=== PATIENT | male | born 1950 | race Caucasian/White ===

== ENCOUNTER 2016-09-14 23:39 | Emergency (ER) | payer MEDICARE, OTHER ==
[~2016-09-14 23:39] MED LIST: APRES25 PO; ASAB PO; AURYXIA PO; AURYXIA210 MG PO; CARDURA8 MG PO; CAT3 PO; CORDARONE PO; COREG25 PO; D.O.S.100 MG PO; DIALYVITE PO; DIALYVITE800 MG PO; DIOVAN320 MG PO; FISH OIL300 MG PO; HUMALOG SC; HUMALOGPEN SC; IMDUR60 PO; INSNOVR SC; L80 PO; LEVEMFLXPN SC; LEVEMIR SC; LIPITOR20 PO; LIPITOR40; LIPITOR80 MG PO; LOP100 PO; LOP50 PO; LYRICA75 PO; MIRALAX POWDER1 PKT PO; NEPRO CARB STEADY PO; NORCO1 TA1 PO; NORV10 PO; OXYGEN; PLAVIX PO; PRIN20 PO; REG5 PO; RENA-VITE PO; SEVE800T PO; SPIRO25 PO; TEKTUR150 PO; TEKTURNA300 MG PO; TRAN200 PO; TUMSROLL PO; VITAMIN D1000 UNI1 PO; XALAT OPH; Z100 PO; ZANAFLEX2 MG PO; ZOFRAN4 PO; ZOLOFT25 MG PO; [UNRECOGNIZED DRUG - OTHER]
[2016-09-15 00:38] LABS: BASOPHILS 0.3 %; BASOPHILS ABSOLUTE 0.04 10/3/uL (0.0-0.16); EOSINOPHILS 3.4 %; EOSINOPHILS ABSOLUTE 0.45 10/3/uL (0.0-0.53); IMMATURE GRANULOCYTES 0.3 %; IMMATURE GRANULOCYTES ABSOLUTE 0.04 10/3/uL (0.0-0.11); LYMPHOCYTES 4.3 %; LYMPHOCYTES ABSOLUTE 0.56 10/3/uL (0.67-4.30); MEAN CORPUS HGB CONC 33.2 g/dL (32.0-36.0); MEAN PLATELET VOLUME 11.1 fL (9.2-13.0); MONOCYTES 4.8 %; MONOCYTES ABSOLUTE 0.63 10/3/uL (0.21-1.20); NEUTROPHILS 86.9 %; NEUTROPHILS ABSOLUTE 11.35 10/3/uL (2.02-8.40); RBC DISTRIBUTION WIDTH 15.3 % (12.0-16.0); WHITE BLOOD CELLS 13.1 10/3/uL (4.5-10.5)
[2016-09-15 00:41] LABS: ER CBC TAT 0 Hrs 07 MinsN; HEMATOCRIT 37.7 % (40.0-51.0); HEMOGLOBIN 12.5 g/dL (13.6-17.8); MANUAL DIFF NO %; MEAN CORPUSCULAR VOLUME 90.6 fL (80-100); PLATELET COUNT 162 10/3/uL (150-400); RED CELL COUNT 4.16 10/6/uL (4.7-6.1)
[2016-09-15 00:48] LABS: PROTIME (NOT ORD) 13.3 SEC (12.0-14.5)
[2016-09-15 00:55] LABS: CALCIUM, SERUM 9.3 MG/DL (8.5-10.4); CHLORIDE, SERUM 100 MMOL/L (96-112); CO2 (CARBON DIOXIDE) 29 MMOL/L (24-34); POTASSIUM, SERUM 4.4 MMOL/L (3.5-5.3); SODIUM, SERUM 138 MMOL/L (135-148)
[2016-09-15 00:57] LABS: BUN (BLOOD UREA NITROGEN) 59 MG/DL (6-23); CREATININE 7.48 MG/DL (0.70-1.30); GFR AFRICAN AMERICAN 8 ML/MIN (>=60); GFR NON AFRICAN AMERICAN 7 ML/MIN (>=60); GLUCOSE, SERUM 181 MG/DL (60-99)
[2016-09-15 00:58] LABS: CHEST PAIN PROFILE TAT 0 Hrs 27 Mins; TROPONIN I 0.06 NG/ML (<0.05)
[2017-02-09] MEDS ORDERED: SPIRO25 PO (13:11)
[2017-02-09] MEDS ORDERED: CLARIT10 PO (13:12)
[2017-02-09] MEDS ORDERED: ASAB PO (13:12)
[2017-02-09] MEDS ORDERED: AURYXIA210 MG PO (13:12)
[2017-02-09] MEDS ORDERED: DIALYVITE PO (13:13)
[2017-02-09] MEDS ORDERED: DSS PO (13:13)
[2017-02-09] MEDS ORDERED: IMDUR60 PO (13:14)
[2017-02-09] MEDS ORDERED: LEVEMIR SC (13:14)
[2017-02-09] MEDS ORDERED: NORCO1 TA1 PO (13:15)
[2017-02-09] MEDS ORDERED: LIPITOR80 MG PO (13:15)
[2017-02-09] MEDS ORDERED: LYRICA75 PO (13:15)
[2017-02-09] MEDS ORDERED: MIRALAX POWDER1 PKT PO (13:16)
[2017-02-09] MEDS ORDERED: NOVOLOG SC (13:16)
[2017-02-09] MEDS ORDERED: PLAVIX PO (13:17)
[2017-02-09] MEDS ORDERED: XALAT OPH (13:17)
[2017-02-09] MEDS ORDERED: ZOL50 PO (13:17)
== END 2016-09-15 04:17 | disposition home or self-care (01) ==
LOC: ER 23:39
PROVIDERS: Specialist
DX: R06.02 Shortness of breath (principal); R79.89 Other specified abnormal findings of blood chemistry; E11.22 Type 2 diabetes mellitus with diabetic chronic kidney disease; N18.6 End stage renal disease; I25.2 Old myocardial infarction; I12.0 Hypertensive chronic kidney disease with stage 5 chronic kidney disease or end stage renal disease; Z86.73 Personal history of transient ischemic attack (TIA), and cerebral infarction without residual deficits; Z87.442 Personal history of urinary calculi; Z99.2 Dependence on renal dialysis; Z91.09 Other allergy status, other than to drugs and biological substances; Z88.8 Allergy status to other drugs, medicaments and biological substances; Z79.4 Long term (current) use of insulin; Z79.82 Long term (current) use of aspirin; Z79.899 Other long term (current) drug therapy
CPT/HCPCS: 71010; 80048; 83735; 83880; 84484; 85025; 85610; 85730; 93005; 99285